=== PATIENT | female | born 1940 | race Caucasian/White ===

== ENCOUNTER 2022-08-18 08:50 | Outpatient (CLI) | payer MEDICARE, OTHER, SELFPAY | END 2022-08-18 08:51 | disposition home or self-care (01) | LOC: AMB 08-22 21:57 | PROVIDERS: Visit Provider Family Medicine | DX: S89.92XA Unspecified injury of left lower leg, initial encounter (principal); W01.0XXA Fall on same level from slipping, tripping and stumbling without subsequent striking against object, initial encounter; Y92.003 Bedroom of unspecified non-institutional (private) residence as the place of occurrence of the external cause | CPT/HCPCS: A0425; A0433 ==